=== PATIENT | male | born 1980 | race Two or more races ===

== ENCOUNTER 2017-11-19 17:06 | Emergency (ER) | payer SELFPAY ==
[~2017-11-19] VITALS: Ht 172.7 cm; Wt 108.9 kg
[2017-11-19 17:16] VITALS: BP 132/87
[2017-11-19] MEDS ORDERED: KETOROLAC TROMETH 60MG/2ML VIAL IM ONE (19:45)
== END 2017-11-19 20:51 | disposition home or self-care (01) ==
LOC: ER 17:11
DX: M12.861 Other specific arthropathies, not elsewhere classified, right knee (principal)
CPT/HCPCS: 73562; 96372; 99284; J1885

== ENCOUNTER 2019-01-17 09:07 | Emergency (ER) | payer OTHER ==
[~2019-01-17] VITALS: Ht 172.7 cm; Wt 106.1 kg
[2019-01-17 10:08] VITALS: BP 134/92
[2019-01-17] MEDS ORDERED: IPRATROPIUM BROM 0.5 MG/2.5ML INH SOL NEB ONE (10:15)
[2019-01-17] MEDS ORDERED: methylPREDNISolone SOD SUCC 125 MG/2 ML VL IM ONE (10:15)
[2019-01-17] MEDS ORDERED: ALBUTEROL SULF 2.5 MG/0.5ML(0.5%) NEB SOLN NEB ONE (10:15)
== END 2019-01-17 11:21 | disposition home or self-care (01) ==
LOC: ER 09:10
DX: J45.901 Unspecified asthma with (acute) exacerbation (principal); Z76.0 Encounter for issue of repeat prescription
CPT/HCPCS: 94640; 96372; 99283; J2930; J7611; J7644

== ENCOUNTER 2019-01-23 11:04 | Emergency (ER) | payer MEDICAID, OTHER ==
[~2019-01-23] VITALS: Ht 172.7 cm; Wt 106.1 kg
[2019-01-23 11:12] VITALS: BP 162/99
== END 2019-01-23 12:51 | disposition home or self-care (01) ==
LOC: ER 11:05
DX: F41.9 Anxiety disorder, unspecified (principal); J45.909 Unspecified asthma, uncomplicated